=== PATIENT | female | born 1970 | race Caucasian/White ===

== ENCOUNTER 2016-06-24 20:05 | Inpatient (IN) | payer BC ==
--- NOTE | ~2016-06-24 | HP ---
History And Physical [facility] [address] [facility] [place]. [address] NAME: JUAN MENDEZ : 72 STATUS : ADM Tesfaye PAT#: [id number] AGE: 46 ADM/REG DATE : 06/24/16 MR#: [id number] REPORT SERV DATE: 06/25/16 DICTATED BY: TEDDY GIPSON DATE: 06/24/16 REPORT STATUS : Draft TRANSCRIBED BY: MODL DATE: 06/24/16 DATE OF ADMISSION: 06/24/2016 CHIEF COMPLAINT: Abdominal pain, fever, and chills. HISTORY OF PRESENT ILLNESS: This is a 46-year-old female, with no significant past medical history who presents to the emergency room at [facility] with the above-mentioned complaint. History is obtained from the patient and reviewing data available on the [employer] system. According to Ms Mendez, she had been in the usual state of health until about two weeks ago when she started having cramping abdominal pain which was mostly in the lower abdomen. This went on for two weeks, but she did not have any other symptoms and she continued to watch it. About a week ago, she reported to [facility] and was diagnosed with influenza A and treated with a course of Tamiflu and Augmentin. She continued to have abdominal pain through this, and then in the last 24 to 36 hours, she started having mucousy stools and she started having fever and chills yesterday. 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 She was then asked to go to the emergency room to be evaluated. In the emergency room, initial workup including CT scan of her abdomen showed acute colitis along with leukocytosis and Hospitalist Service is asked to admit her for further evaluation and treatment. At the time of my evaluation, she denied any chest pain, palpitations, or orthopnea. She had no cough, hemoptysis, night sweats, or weight loss. She has not had any recent falls or loss of consciousness. No history of nausea, vomiting, or diarrhea. She did have fevers and chills as mentioned above. No other history of recent travel or exposures. PAST MEDICAL HISTORY: Significant for history of ADHD. SOCIAL HISTORY: She does not smoke, drink, or use recreational drugs. FAMILY HISTORY: Noncontributory. MEDICATIONS: At home were reviewed by me in the chart today and reordered by me. REVIEW OF SYSTEMS: As in history of present illness. All other systems were reviewed in detail and are quite unremarkable. PHYSICAL EXAMINATION: GENERAL: This is a very pleasant 46-year-old, not in any acute distress. HEENT: Her head is atraumatic, normocephalic. She is alert, awake, and oriented to time, place, and person. Her pupils are equal, reacting to light and accommodating. External History And Physical [address] [place]. [address] NAME: JUAN MENDEZ : 72 STATUS : ADM Tesfaye PAT#: [id number] AGE: 46 ADM/REG DATE : 06/24/16 MR#: [id number] REPORT SERV DATE: 06/25/16 DICTATED BY: TEDDY GIPSON DATE: 06/24/16 REPORT STATUS : Draft TRANSCRIBED BY: HERIBERTO DATE: 06/24/16 ocular muscles are intact. Membranes are moist and pink. Sclerae are nonicteric. NECK: Supple with no jugular venous distention, lymphadenopathy, or thyromegaly. LUNGS: Clear to auscultation with no wheezes, rubs, or crackles. HEART: Heart sounds are regular with no murmurs, rubs, or gallops. ABDOMEN: Soft, nontender. Bowel sounds are present. EXTREMITIES: Show no cyanosis, clubbing, or edema. NEUROLOGIC: Grossly intact. No focal sensory or motor deficits. Higher functions appear intact. She is able to move all four extremities. VITAL SIGNS: Her vital signs today showed a temperature of 98.0 upon arrival, pulse is 104, respirations 15 to 16 a minute, blood pressure is 108/65, oxygen saturations are 97% breathing 2 L of oxygen via nasal cannula. LABORATORY DATA: Reviewed on the [employer] system showed a normal CMP with a blood glucose of 92. [place] [address], otherwise normal hemoglobin, hematocrit, and platelet count. Urinalysis did not reveal any acute or gross abnormality. Films of the CT scan of her abdomen and pelvis were reviewed by me on the PACS today and interpreted by me. Official Radiology report was also reviewed. There is thickened appearance of the ascending, transverse, descending, and the proximal sigmoid colon most compatible with nonspecific colitis. There is no evidence for abscess or perforation seen. There is mild diverticulosis of the descending or distal descending colon and sigmoid colon. She has had a cholecystectomy and hysterectomy. IMPRESSION: 1. Abdominal pain. 2. Febrile illness. 3. Acute colitis. 4. Leukocytosis. 5. Attention deficit hyperactivity disorder. PLAN: We will admit Ms Mendez to a defensive monitoring bed for a 24-hour observation. After cultures are drawn, we will start her on empiric IV antibiotics. We will start her on levofloxacin and Flagyl intravenously. We will also get Gastroenterology to see her in the morning. Meanwhile, we will start her on fluid resuscitation, check CBC and CMP in the morning and replace electrolytes as needed. She will be placed on unfractionated heparin for DVT prophylaxis while here. Please see today's orders for details. I have discussed the above plans with the patient. Her questions were answered, and she is agreeable to the above recommendations. Hospitalist Service will be following her during her stay here. /HERIBERTO Teddy Gipson M.D. History And Physical [address] [address] NAME: JUAN MENDEZ : 72 STATUS : ADM Tesfaye PAT#: [id number] AGE: 46 ADM/REG DATE : 06/24/16 MR#: [id number] REPORT SERV DATE: 06/25/16 DICTATED BY: TEDDY GIPSON DATE: 06/24/16 REPORT STATUS : Draft TRANSCRIBED BY: HERIBERTO DATE: 06/24/16 / [id number] CC: Sánchez Duran Jr, MD
--- NOTE | ~2016-06-24 | DS ---
Discharge Summary [facility] [address] [place]. [address] NAME: JUAN LUJAN : 72 STATUS : DIS IN PAT#: [id number] AGE: 46 ADM/REG DATE : 06/24/16 MR#: [id number] REPORT SERV DATE: 06/27/16 DICTATED BY: STAS FREEMAN DATE: 06/26/16 REPORT STATUS : Draft TRANSCRIBED BY: MODL DATE: 06/26/16 ADMISSION DATE: 06/24/2016 DISCHARGE DATE: 06/26/2016 DISCHARGE DIAGNOSES: 1. Clostridium difficile colitis. 2. Abdominal pain and diarrhea. 3. Leukocytosis. 4. Recent influenza and ear infection. 5. History of attention deficit disorder. DISCHARGE MEDICATIONS: Adderall 30 mg in the morning, 10 mg at noon; Benadryl 25 mg at bedtime; Florastor 1 capsule p.o. twice a day; Carafate 1 g 4 times a day for seven days; Ativan 0.5 mg to 1 mg daily p.r.n. for anxiety; Probiotic; Tylenol 1000 mg daily p.r.n. for pain; and Vancocin p.o. 125 mg four times a day for 13 more days. HISTORY OF PRESENT ILLNESS: Very pleasant, 46-year-old, white female who presented with abdominal pain, fevers, and chills. Please see initial H and P of Dr. Teddy Solomon as patient admitted to the Hospitalist Service for further evaluation and treatment. Lab work was ordered and followed. She was placed on empiric antibiotic coverage. CONSULTS DURING THIS ADMISSION: Gastroenterology, Dr. Manuel Short. PROCEDURES AND IMAGING DURING THIS ADMISSION: CT of the abdomen and pelvis that showed a thickened appearance of the ascending transverse and descending proximal sigmoid colon, most compatible with nonspecific colitis. No abscess or perforation was seen. Mild diverticulosis. HOSPITAL COURSE: I began seeing the patient in followup on 06/25/2016 where she was feeling some better but still having quite a bit of diarrhea and some mild abdominal pain. Her white blood cell count had declined from a high of 20.1 to 13.6, and she was afebrile. We obtained stool studies to check for Clostridium difficile which did come back positive. Her antibiotics were changed to the vancomycin and Levaquin and Flagyl were stopped. She was monitored, and her diarrhea began to slow, and she was seen by Gastroenterology, Dr. Manuel Short who also ordered stool studies for white blood cells and stool cultures. Cultures are pending as of this dictation, and the patient has an appointment to follow up with Dr. Manuel Short on 07/12. I have instructed her to keep that followup visit but overall given patient's symptomatic improvement, continue treatment plan. She was discharged home on 06/26/2016 with the above medication regimen and follow up plan. All questions were answered at bedside. CSC/HERIBERTO [facility] Discharge Summary [address] [address] NAME: JUAN LUJAN : 72 STATUS : DIS IN PAT#: [id number] AGE: 46 ADM/REG DATE : 06/24/16 MR#: [id number] REPORT SERV DATE: 06/27/16 DICTATED BY: STAS FREEMAN [facility] DATE: 06/26/16 REPORT STATUS : Draft TRANSCRIBED BY: MODL DATE: 06/26/16 Julio Freeman NP / [id number] CC: Yolanda Bynum M.D.
--- NOTE | ~2016-06-24 | CN ---
Consultation Report [facility] [address] [place]. [address] NAME: JUAN LUJAN : 72 STATUS : ADM Tesfaye PAT#: [id number] AGE: 46 ADM/REG DATE : 06/24/16 MR#: [id number] REPORT SERV DATE: 06/26/16 DICTATED BY: DOMENICO CHAVARRIA DATE: 06/25/16 REPORT STATUS : Draft TRANSCRIBED BY: MODL DATE: 06/25/16 CONSULTATION NOTE DATE OF CONSULTATION: REFERRING PHYSICIAN: Dr. Sánchez Duran. HISTORY OF PRESENT ILLNESS: This is a 46-year-old white female who works at [employer] office who has had recent flu, said was given during that course of her illness some Augmentin, began having some nausea and vomiting within the last couple of weeks. Had some reflux, given some Protonix, then began having some loose stools, mucoid stools, those worsened over the last week. She again had fever and chills yesterday. I did a white count, it was 30,000. She came to the emergency room, and was admitted. No real active bleeding. Had some slightly blood-tinged stool. Had a CT, which showed colitis involving most of the colon. Also continued to have primary left lower quadrant pain. Also there was diverticular disease noted on CT. She has past history of attention deficit disorder. SOCIAL HISTORY: Negative for EtOH or nicotine. FAMILY HISTORY: Negative for colon cancer or IBD. She is status post cholecystectomy, hysterectomy, and bladder tack. As mentioned the white count was 30,000, it is down to 13,000 the day after treatment with Flagyl and Levaquin. Hemoglobin 12. PHYSICAL EXAMINATION: GENERAL: Well developed, well-nourished white female, alert and oriented x3. HEENT: Anicteric. CHEST: Clear. HEART: Regular rate rhythm without murmur or gallop. ABDOMEN: Soft. Tender in left lower quadrant. Bowel sounds present. EXTREMITIES/NEUROLOGIC: Grossly intact. ASSESSMENT: 1. Episode of flu last month given Augmentin during that illness, now presents with abdominal pain, diarrhea, fever, chills, elevated white count, which is improved on therapy since admission. CT revealed colitis and diverticular disease. 2. Attention deficit disorder. Suggest continue current antibiotic regimen for now, but I will await stool studies particularly the C. difficile. We will follow with you. Thank you for the consultation. AGAPITO/HERIBERTO Consultation Report [place] [id number] [place] [address] NAME: JUAN LUJAN : 72 STATUS : ADM Tesfaye PAT#: [id number] AGE: 46 ADM/REG DATE : 06/24/16 MR#: [id number] REPORT SERV DATE: 06/26/16 DICTATED BY: DOMENICO CHAVARRIA DATE: 06/25/16 REPORT STATUS : Draft TRANSCRIBED BY: HERIBERTO DATE: 06/25/16 Domenico Chavarria M.D. / [id number] CC: Sánchez Duran Jr, MD Patrick Rhyne, M.D.
[2016-06-24 17:41] LABS: ASCORBIC ACID (UR NOT ORDER) NEG (NEG); BILIRUBIN, URINE NEGATIVE (NEG); ER URINALYSIS TAT 0 Hrs 07 Mins; KETONE, URINE NEGATIVE (NEG); LEUKOCYTE ESTERASE(NOT OR TRACE (NEG); NITRITE (URINE) NEG (NEG); WBC (NOT ORDERED) (RFLEX) 1 (0-5)
[2016-06-24 17:43] LABS: BASOPHILS 0.2 %; BASOPHILS ABSOLUTE 0.04 10/3/uL (0.0-0.16); EOSINOPHILS 0.4 %; EOSINOPHILS ABSOLUTE 0.09 10/3/uL (0.0-0.53); ER CBC TAT 0 Hrs 09 Mins; HEMATOCRIT 38.7 % (36.0-48.0); HEMOGLOBIN 13.2 g/dL (12.0-16.0); IMMATURE GRANULOCYTES 0.4 %; IMMATURE GRANULOCYTES ABSOLUTE 0.08 10/3/uL (0.0-0.11); LYMPHOCYTES 12.1 %; LYMPHOCYTES ABSOLUTE 2.44 10/3/uL (0.67-4.30); MEAN CORPUS HGB CONC 34.1 g/dL (32.0-36.0); MEAN CORPUSCULAR HEMOGLOB 30.9 pg (26.0-34.0); MEAN CORPUSCULAR VOLUME 90.6 fL (80-100); MEAN PLATELET VOLUME 9.5 fL (9.2-13.0); MONOCYTES 7.8 %; MONOCYTES ABSOLUTE 1.57 10/3/uL (0.21-1.20); NEUTROPHILS 79.1 %; NEUTROPHILS ABSOLUTE 15.89 10/3/uL (2.02-8.40); PLATELET COUNT 284 10/3/uL (150-400); RBC DISTRIBUTION WIDTH 13.4 % (12.0-16.0); RED CELL COUNT 4.27 10/6/uL (4.0-5.6); WHITE BLOOD CELLS 20.1 10/3/uL (4.5-10.5)
[2016-06-24 17:49] LABS: MANUAL DIFF NO %
[2016-06-24 17:58] LABS: A/G RATIO 0.9 (0.7-1.9); ALBUMIN 3.4 G/DL (3.5-5.0); ALKALINE PHOSPHATASE 78 U/L (45-117); BUN (BLOOD UREA NITROGEN) 7 MG/DL (6-23); CALCIUM, SERUM 8.9 MG/DL (8.5-10.4); CHLORIDE, SERUM 106 MMOL/L (96-112); CO2 (CARBON DIOXIDE) 31 MMOL/L (24-34); CREATININE 0.64 MG/DL (0.55-1.02); GFR AFRICAN AMERICAN 125 ML/MIN (>=60); GFR NON AFRICAN AMERICAN 108 ML/MIN (>=60); GLUCOSE, SERUM 92 MG/DL (60-99); SGOT(AST) 18 U/L (5-40); SGPT(ALT) 26 U/L (5-65); SODIUM, SERUM 140 MMOL/L (135-148); TOTAL BILIRUBIN 0.3 MG/DL (0-1.2); TOTAL PROTEIN 7.4 G/DL (6.0-8.5)
[~2016-06-24 20:05] MED LIST: ACET500CAP PO; ADDER10 PO; ADDERALL30 MG PO; ATV.5 PO; BEN25 PO; FLAG500TAB PO; LEVAQUIN5T PO; PROBIOTIC OTC PO; PROTONIX PO; SUCR PO
[2016-06-25 04:21] LABS: BASOPHILS 0.1 %; BASOPHILS ABSOLUTE 0.02 10/3/uL (0.0-0.16); EOSINOPHILS 0.8 %; EOSINOPHILS ABSOLUTE 0.11 10/3/uL (0.0-0.53); HEMOGLOBIN 11.6 g/dL (12.0-16.0); IMMATURE GRANULOCYTES 0.4 %; IMMATURE GRANULOCYTES ABSOLUTE 0.05 10/3/uL (0.0-0.11); LYMPHOCYTES 19.2 %; LYMPHOCYTES ABSOLUTE 2.61 10/3/uL (0.67-4.30); MEAN CORPUS HGB CONC 33.4 g/dL (32.0-36.0); MEAN CORPUSCULAR HEMOGLOB 30.8 pg (26.0-34.0); MEAN PLATELET VOLUME 9.2 fL (9.2-13.0); MONOCYTES 6.2 %; MONOCYTES ABSOLUTE 0.85 10/3/uL (0.21-1.20); NEUTROPHILS 73.3 %; NEUTROPHILS ABSOLUTE 9.97 10/3/uL (2.02-8.40); PLATELET COUNT 242 10/3/uL (150-400); RBC DISTRIBUTION WIDTH 13.2 % (12.0-16.0); RED CELL COUNT 3.77 10/6/uL (4.0-5.6); WHITE BLOOD CELLS 13.6 10/3/uL (4.5-10.5)
[2016-06-25 04:29] LABS: HEMATOCRIT 34.7 % (36.0-48.0); MANUAL DIFF NO %
[2016-06-25 04:32] LABS: BUN (BLOOD UREA NITROGEN) 5 MG/DL (6-23); CHLORIDE, SERUM 110 MMOL/L (96-112); CO2 (CARBON DIOXIDE) 28 MMOL/L (24-34); CREATININE 0.58 MG/DL (0.55-1.02); GFR AFRICAN AMERICAN 129 ML/MIN (>=60); GFR NON AFRICAN AMERICAN 111 ML/MIN (>=60); GLUCOSE, SERUM 88 MG/DL (60-99); PHOSPHORUS, SERUM 2.2 MG/DL (2.5-4.5); POTASSIUM, SERUM 4.2 MMOL/L (3.5-5.3); SODIUM, SERUM 145 MMOL/L (135-148)
[2016-06-25 04:36] LABS: CALCIUM, SERUM 7.9 MG/DL (8.5-10.4)
[2016-06-26 05:37] LABS: BUN (BLOOD UREA NITROGEN) 4 MG/DL (6-23); CALCIUM, SERUM 7.9 MG/DL (8.5-10.4); CHLORIDE, SERUM 110 MMOL/L (96-112); CO2 (CARBON DIOXIDE) 25 MMOL/L (24-34); CREATININE 0.47 MG/DL (0.55-1.02); GFR AFRICAN AMERICAN 138 ML/MIN (>=60); GFR NON AFRICAN AMERICAN 119 ML/MIN (>=60); GLUCOSE, SERUM 97 MG/DL (60-99); PHOSPHORUS, SERUM 2.2 MG/DL (2.5-4.5); POTASSIUM, SERUM 3.6 MMOL/L (3.5-5.3); SODIUM, SERUM 143 MMOL/L (135-148)
[2016-06-26] MEDS ORDERED: VANCOCIN HCL125 MG PO ×2 (11:07)
== END 2016-06-26 11:25 | disposition home or self-care (01) | DRG 373 ==
LOC: ER 20:05 → CDU1 20:24
PROVIDERS: Emergency Medicine; Internal Medicine; Internal Medicine Pulmonary Disease
DX: A04.7 Enterocolitis due to Clostridium difficile (principal); F90.9 Attention-deficit hyperactivity disorder, unspecified type; K57.90 Diverticulosis of intestine, part unspecified, without perforation or abscess without bleeding; Z90.49 Acquired absence of other specified parts of digestive tract; Z86.19 Personal history of other infectious and parasitic diseases
CPT/HCPCS: 74176; 80048; 80053; 81001; 82272; 83605; 83690; 83735; 84100; 85025; 87040; 87045; 87046; 87046-59; 87493; 87493-59; 87899; 87899-59; 89055; 96365; 96375; 99285; A9270-GY; J1170; J1956; J2405